=== PATIENT | male | born 1995 | race Caucasian/White ===

== ENCOUNTER 2018-03-14 19:13 | Emergency (ER) | payer OTHER ==
[2018-03-14] MEDS: PENICILLIN V POTASSIUM 500 MG TAB PO (21:21)
== END 2018-03-14 21:28 | disposition home or self-care (01) ==
LOC: M ED 19:13
DX: K11.20 Sialoadenitis, unspecified (principal); R68.84 Jaw pain
CPT/HCPCS: 99282

== ENCOUNTER 2018-04-11 11:45 | Emergency (ER) | payer OTHER ==
[2018-04-11] MEDS: IBUPROFEN 600 MG TAB PO (16:35)
[2018-04-11] MEDS: ONDANSETRON 4 MG ORAL DISINTEGRATING TAB (Q0162 PER 1MG) PO (16:35)
== END 2018-04-11 17:16 | disposition home or self-care (01) ==
LOC: M ED 11:45
DX: S00.03XA Contusion of scalp, initial encounter (principal); S00.01XA Abrasion of scalp, initial encounter; S06.0X0A Concussion without loss of consciousness, initial encounter; W22.09XA Striking against other stationary object, initial encounter; Y92.89 Other specified places as the place of occurrence of the external cause; E80.4 Gilbert syndrome
CPT/HCPCS: Q0162

== ENCOUNTER → 2023-08-27 | Outpatient (REF) | payer OTHER ==
[~2023-08-27] MED LIST: FLON1SPR NARES; IBUP-1022 PO; PENI500T PO; ZOFR4TAB14 PO
== END ==
LOC: M LAB REF 16:24
PROVIDERS: ATTEND Physician Assistant Medical
DX: B34.9 Viral infection, unspecified (principal)

== ENCOUNTER → 2024-03-07 | Outpatient (REF) | payer OTHER ==
[2024-03-07 18:18] LABS: Trichomonas vaginalis (AMP) NOT DETECTED (NEGATIVE)
[2024-03-07 18:42] LABS: GC DNA AMPLIFICATION NEGATIVE (NEGATIVE)
== END ==
LOC: M LAB REF 16:20
PROVIDERS: ATTEND Physician Assistant Medical
DX: Z20.2 Contact with and (suspected) exposure to infections with a predominantly sexual mode of transmission (principal)